=== PATIENT | female | born 1995 | race Caucasian/White ===

== ENCOUNTER 2018-01-04 08:21 | Emergency (ER) | payer OTHER ==
[~2018-01-04] VITALS: Ht 165.1 cm; Wt 58.1 kg
--- NOTE | 2018-01-04 08:25 | NUR ---
PT REC'D TO ER C/.O PAIN NIOSE PT CLEARED FOR BOOKING GIVEN MOTRIN 4000 GM PO
[2018-01-04] MEDS ORDERED: IBUPROFEN 400 MG TABLET PO ONE (08:30)
[2018-01-04] MEDS ORDERED: IBUPROFEN 400 MG TABLET ONE (08:39)
--- NOTE | 2018-01-04 08:43 | NUR ---
PT. VERBALIZED UNDERSTANDING OF AFTERCARE INSTRUCTIONS.Patient discharged to home in stable condition. Written and verbal after care instructions given. Patient verbalizes understanding of instruction.
[2018-01-04 08:45] VITALS: BP 122/72
--- NOTE | 2018-01-04 08:45 | NUR ---
JAS FOR BOOKING
== END 2018-01-04 08:47 ==
LOC: ER 08:22
DX: S00.33XA Contusion of nose, initial encounter (principal); W51.XXXA Accidental striking against or bumped into by another person, initial encounter; Y93.89 Activity, other specified; Y92.89 Other specified places as the place of occurrence of the external cause; Y99.8 Other external cause status
CPT/HCPCS: 99283; A4606; Z7610